=== PATIENT | female | born 1940 | race Caucasian/White ===

== ENCOUNTER 2016-08-20 20:14 | Inpatient (IN) | payer MEDICARE ==
[~2016-08-20] VITALS: Ht 157.5 cm; Wt 90.1 kg
[2016-08-20 20:18] VITALS: BP 171/64; PULSE 52; RESP 16; O2SAT 98
--- NOTE | 2016-08-20 20:20 | ED.REPORT ---
HPI-General Illness Date of Service Aug 20, 2016 ED Provider: Prashant Negron MD Patient is a 75 year old female with a history of diabetes, pulmonary hypertension on 4L of baseline oxygen who presents to the ED via EMS complaining of sudden onset vomiting since this afternoon. Associated symptoms include nausea, dry heaves, chills, malaise and diarrhea. She denies chest pain or abdominal pain. The patient states that initially she was nauseated and was able to have a bowel movement but was unable to vomit. The patient reports that when she woke up from a nap she felt like she had the stomach flu. She states that she ate a little bit of watermelon and a few potato chips and was able to keep that down but than began once the medics arrived. She reports that she is feeling better after getting some IV fluids en route. Nursing Notes Stated Complaint: NAUSEA,VOMITING Chief Complaint: Female Abdominal Pain Nursing Notes Reviewed: Yes Allergies: Coded Allergies: No Known Allergies (Unverified , 08/20/16) General Time Seen by MD: 20:17 Chief Complaint Vomiting Hx Obtained From: Patient Arrived By: Walk-in Sudden in Onset?: Yes Onset Occurred: 1 - 4 hours ago Symptom Duration: Since onset Location: : Abdomen Quality: Painful Radiation: : Does not radiate Severity: Current: Moderate Similar Sx Previous: No Past Medical History Past Medical History Reports: Diabetes mellitus, Hypertension Past Surgical History Reports: Appendectomy, Hysterectomy, Tonsillectomy Smoking History Unknown if Ever Smoker Social History Other Social History: Good social support Ambulatory Status Independent Review of Systems Full Review of Systems Constitutional: Reports: Chills, Malaise Respiratory: Denies: Non-productive cough, Shortness of breath GI: Reports: Nausea, Vomiting Skin: Denies Itching, Denies Rash Complete sys rev & neg: except as marked. Physical Exam Vital Signs Vital Signs Date Time Temp Pulse Resp B/P Pulse Ox O2 Delivery O2 Flow Rate FiO2 08/20/16 20:18 36.4 52 16 171/64 98 Nasal Cannula Initial VS: Reviewed General/Constitutional: Awake, Alert Head / Eyes: Atraumatic, Normocephalic, PERRL, EOMI Respiratory / Chest: Atraumatic, Breath sounds NL, Breath sounds = bilat, No respiratory distress Cardiovascular: Heart rate NL, Regular rhythm grade 1-2 mild systolic murmur heard best at the left lower sternal border Abdomen: Atraumatic, Soft, Non-tender, No guarding, No rebound, BS normoactive tolerates firm palpation in all quadrants. Lower Extremity / Pelvis / MS: Atraumatic, Full range of motion trace pitting edema bilateral lower extremities Skin: Atraumatic, Color NL, No rash, Warm, Dry Neurologic: Oriented X3, Speech NL, No motor deficits, No sensory deficits Psychiatric: Affect NL, Mood NL Interpretation & Diagnostics Lab Results Interpretation Result Diagram: 08/20/16205708/20/162057 Test 08/20/16 20:58 White Blood Count 8.4th/mm3 (3.8-10.1) Red Blood Count 4.66mil/mm3 (3.90-5.20) Hemoglobin 14.5g/dL (12.0-15.6) Hematocrit 44.5% (35.0-46.0) Mean Corpuscular Volume 95.5fL (81-100) Mean Corpuscular Hemoglobin 31.1pg (27.0-35.0) Mean Corpuscular Hemoglobin Concent 32.6% (32.0-37.0) Red Cell Distribution Width 14.6% (12.3-15.4) Platelet Count 246bil/L (150-400) Neutrophils (%) (Auto) 91.5% (40-74) Lymphocytes (%) (Auto) 5.6% (14-46) Monocytes (%) (Auto) 2.4% (4-12) Eosinophils (%) (Auto) 0.2% (0-5) Basophils (%) (Auto) 0.2% (0-3) Sodium Level 140mEq/L (134-144) Potassium Level 6.2mEq/L (3.5-5.2) Chloride Level 107mEq/L (97-108) Carbon Dioxide Level 18mmol/L (18-29) Blood Urea Nitrogen 62mg/dL (8-27) Creatinine 1.37mg/dL (0.57-1.00) Estimat Glomerular Filtration Rate 54mL/min (>59) Glucose Level 182mg/dL (60-99) Calcium Level 9.5mg/dL (8.5-10.1) Magnesium Level 1.9mg/dL (1.6-2.6) Total Bilirubin 0.7mg/dL (0.0-1.2) Aspartate Amino Transf (AST/SGOT) 51U/L (0-50) Alanine Aminotransferase (ALT/SGPT) 60U/L (0-32) Alkaline Phosphatase 93U/L (25-165) Total Protein 7.1g/dL (6.4-8.4) Albumin 4.1g/dL (3.4-5.0) Lipase 39U/L (13-60) Hold Aguirre Top Tube Received (Received) ECG Interpretation ECG Interpretation: RBBB no ST segment elevation inferior Q waves present no prior EKG for comparison Time: 22:34 Interpreted by: ED physician Normal ECG Interpretation: Normal rate (56), Normal sinus rhythm Re-Eval/Medical Decision Med Decision/Clinical Course Patient is a 75 year old female with a history of diabetes, pulmonary hypertension on 4L of baseline oxygen who presents to the ED via EMS complaining of sudden onset vomiting since this afternoon. Associated symptoms include nausea, dry heaves, chills, malaise and diarrhea. She denies chest pain or abdominal pain. The patient states that initially she was nauseated and was able to have a bowel movement but was unable to vomit. The patient reports that when she woke up from a nap she felt like she had the stomach flu. She states that she ate a little bit of watermelon and a few potato chips and was able to keep that down but than began once the medics arrived. She reports that she is feeling better after getting some IV fluids en route. Here in the emergency department the patient has good oxygen saturation on her baseline 4 L by nasal cannula. EKG was obtained and interpreted by myself as documented above. She is hemodynamically stable and afebrile. Labs as below: CBC unremarkable CMP: hyperkalemia with a potassium of 6.2/BUN 62/Creatinine 1.37/ mildly elevated transaminases Patient was treated with the below medications: insulin/glucose, calcium gluconate and Kayexalate Serial abdominal exams remained benign. I do not feel that abdominal imaging is indicated at this time. The patient has acute kidney injury with significant elevation of her BUN as well as potassium. She was aggressively treated with the above medications. She was additionally given IV fluids. I suspect that much for kidney injury may be related to volume depletion however she will be admitted for serial renal function measurements and treatment of her hyperkalemia. She was discussed with the admitting hospitalist and transferred to [facility] in stable condition. Time of Eval: 22:44 Re-Evaluation/Progress Note: Discussed plan for admit. Patient understands and agrees to plan. All questions were addressed. Consultation : Referral / Consult Name: Pamela Campbell DO Consulted With: Hospitalist Call Returned at: 22:28 Dumpster Operator: Agrees with eval, Agrees with plan, Accepts admit Counseled Regarding: Diagnosis, Lab results, Need for admission Discharge & Departure Primary Impression: Hyperkalemia Additional Impressions: Acute renal failure Acute renal failure type: unspecified Qualified Code: N17.9 - Acute kidney failure, unspecified Nausea and vomiting Vomiting type: unspecified Vomiting Intractability: unspecified Qualified Code: R11.2 - Nausea with vomiting, unspecified Dehydration Disposition: ADMITTED TO HOSPITAL Discharge Condition All VS Reviewed: Yes Condition: Stable Crit Care Except Billable Proc Time Spent: 105-134 minutes Services Performed: Patient management by me, Time spent at bedside, Reviewing test results, Reviewing imaging, Discussing patient care, Documentation in record, Time with fam/surrogate Scribe Attestation Portions of this note were transcribed by Olga Argueta. I, Dr. Negron personally performed the history, physical exam and medical decision-making; I reviewed and confirmed the accuracy of the information in the transcribed note. Signed by: Arely Hua, 08/20/16 and 2236 Prashant Negron MD Aug 20, 2016 20:20 Denia Argueta Aug 20, 2016 21:01
[2016-08-20 21:10] LABS: BASOPHILS % (AUTO) 0.2 % (0-3); EOSINOPHILS % (AUTO) 0.2 % (0-5); MONOCYTES % (AUTO) 2.4 % (4-12); Mean Corpuscular Hemoglobin 31.1 pg (27.0-35.0); Mean Corpuscular Volume 95.5 fL (81-100); NEUTROPHILS % (AUTO) 91.5 % (40-74); Platelet Count 246 bil/L (150-400)
[2016-08-20 21:32] LABS: Magnesium 1.9 mg/dL (1.6-2.6)
[2016-08-20] MEDS ORDERED: Sodium Polystyrene Sulfonate 0.25 Gm/mL 500 mL Suspension PO ONE (22:15)
[2016-08-20] MEDS ORDERED: Alum-Mag Hydrox-Simeth 30 mL Suspension PO PRN ×2 (22:15→23:45)
[2016-08-20] MEDS ORDERED: Insulin Human REGular-Omnicell 100 Unit/mL IV ONE (22:15)
[2016-08-20] MEDS ORDERED: Calcium GLUCOnate 10% (Gm) 1 Gm/10 mL Inj IVPUSH PRN (22:15)
[2016-08-20] MEDS ORDERED: Ondansetron 2 mg/mL 2 mL Inj IVPUSH PRN ×2 (22:15→23:45)
[2016-08-20] MEDS ORDERED: 0.9% Sodium Chloride 1,000 ML IV ONE (22:35)
[2016-08-20] MEDS ORDERED: Polyethylene Glycol (PEG) 17 Gm Powder PO PRN (23:45)
[2016-08-21] VITALS (11 sets, daily range): BP systolic 127–190; BP diastolic 36–71; PULSE 51–65; RESP 16–24; O2SAT 93–99
[2016-08-21 00:11] LABS: COLOR,URINE YELLOW (YELLOW)
[2016-08-21 00:12] LABS: APPEARANCE,URINE CLEAR (CLEAR,HAZY); OCCULT BLOOD,URINE NEGATIVE (NEGATIVE); UROBILINOGEN,URINE NORMAL (NORMAL)
[2016-08-21] MEDS: 0.9% Sodium Chloride 1,000 ML IV SCH ×3 (00:24→10:17)
[2016-08-21] MEDS: Heparin 5,000 Unit/mL Inj SUBQ SCH ×3 (00:24→16:47)
[2016-08-21] MEDS ORDERED: CLOP75TA28 PO (01:16)
[2016-08-21] MEDS ORDERED: [UNRECOGNIZED DRUG - CODE] PO (01:16)
[2016-08-21] MEDS ORDERED: CALC-140 PO (01:16)
[2016-08-21] MEDS ORDERED: GUAI-274 PO (01:16)
[2016-08-21] MEDS ORDERED: AMLO10TA3 PO (01:16)
[2016-08-21] MEDS ORDERED: SPIR25TA3 PO (01:16)
[2016-08-21] MEDS ORDERED: LOSA50TA37 PO (01:16)
[2016-08-21] MEDS ORDERED: SILD20TA14 PO (01:16)
[2016-08-21] MEDS ORDERED: ASCO-294 PO (01:16)
[2016-08-21] MEDS ORDERED: CETI10CA PO (01:16)
[2016-08-21] MEDS ORDERED: ATOR40TA69 PO (01:16)
[2016-08-21] MEDS ORDERED: CITA20TA11 PO (01:16)
[2016-08-21] MEDS ORDERED: DOCO1CAP3 PO (01:16)
[2016-08-21] MEDS ORDERED: INSU100V7 SUBQ (01:16)
--- NOTE | 2016-08-21 01:34 | PCM.HPMED ---
Subjective Date of Service Aug 21, 2016 Primary Provider: Admitting Physician: Pamela Campbell DO Primary Care Physician: Bran Morris MD Attending Physician: Pamela Campbell DO Admit Status: From the Emergency Department Chief Complaint: Nausea, vomiting, dizziness, chills. History of Present Illness: Patient is a 75 year old female with a history of diabetes, CKD, lacunar stroke , pulmonary hypertension on 4L of baseline oxygen who presents to the ED via EMS complaining of sudden onset vomiting since this afternoon. She states she was previously in her usual state of health, but then woke up from a nap today and felt disoriented and had chills. She began to have diarrhea, as well as chills, malaise, and dizziness. She called EMS, and began vomiting when they arrived. She denies chest pain or abdominal pain. She states that she ate a little bit of watermelon and a few potato chips prior that day, but had not eaten anything unusual otherwise. She denies sick contacts. On admission, BP was 190/71, HR 58. WBC 8.4 with 91% neutrophils, Hb 14.5, Hct 44.5. Na 140, K 6.2, BUN 62, Cr 1.37, glucose 182, AST 51, ALT 60. Daughter provided previous labs from 05/20/16 which showed K of 4.7 and Cr of 1.69, which she states is baseline. Review of Systems: Comprehensive review of systems conducted and was negative except for the pertinent positives listed above. Allergies Coded Allergies: No Known Allergies (Unverified , 08/20/16) Home Medications Amlodipine 10 mg daily Vit C Atorvastatin 40 mg daily Bosentan 125 mg BID Cetirizine 10 mg hs Citalopram 20 mg daily Clopidogrel 75 mg daily Lantus 1 U BIDLosartan 50 mg daily Sildenafil 20 mg TID Spironolactone 25 mg daily PMH Diabetes mellitus Hypertension Lacunar stroke CKD Pulmonary hypertension Social History Hx Alcohol Use: No Hx Substance Use: No Smoking Status: Unknown if Ever Smoker Exam Vital Signs Vital Sign - Last Date Time Temp Pulse Resp B/P Pulse Ox O2 Delivery O2 Flow Rate FiO2 08/21/16 00:21 37.1 58 24 190/71 Nasal Cannula 4.00 96 08/20/16 23:40 98 Exam General: Alert, Oriented X3, Cooperative, No acute distress Head: Normocephalic, atraumatic. External ears normal. Eyes: PERRLA, EOMI. Anicteric sclerae. Mouth: Mouth normal, Mucous membranes moist/pink Neck: Neck supple with full range of motion. Chest& Lungs: Clear to auscultation bilaterally with no crackles, wheezes, or rhonchi. Cardiovascular: Regular rate/rhythm, Normal S1, Normal S2, Holosystolic murmur present. Abdomen: Non-tender, Non-distended, No masses, Normoactive bowel tones, Soft Musculoskeletal: Normal range of motion Extremities: No cyanosis/clubbing/edema bilaterally. Callouses on bilateral feet. Neurological: Grossly neurologically intact. Normal speech Lab and Diagnostics Result Diagram: 08/20/16205708/20/162057 Assessment & Plan Patient is a 75 year old female with a history of diabetes, CKD, lacunar stroke , pulmonary hypertension on 4L of baseline oxygen who presents to the ED via EMS complaining of sudden onset vomiting since this afternoon. Acute onset vomiting and diarrhea - Possibly secondary to viral gastroenteritis. Her symptoms appear to be resolving spontaneously and pt reports she feels better with fluids. Conservative management - Continue NS @ 120 ml/hr - Promethazine 12.5 q4 PRN nausea. Avoiding Zofran due to higher risk of QT prolongation (pt QTc 495). Hyperkalemia, acute. - Likely multifactorial from dehydration, vomiting, and spironolactone and losartan. - Hold spironolactone and losartan - Calcium gluconate 1g given - Kayexalate 30g PO given - Regular insulin 10 U with glucose - Recheck K regularly Hypertension, acute on chronic. - BP 190/71 on admission. She reports her BP is usually well-controlled. Pt appears to be mildly bradycardic, and Cr is stable according to previous labs, so will proceed with enalaprilat. - Enalaprilat 0.625 mg IV once. No further doses d/t hyperkalemia, discuss use of alternate medications such as hydralazine with nephro for PRN, increase current PO medications or consideration to restarting home medications at reduced dose given elevated K - Continue amlodipine - Monitor BP closely - Will recheck Cr in AM. Elevated LFTs - AST 51, ALT 60 on admission. Pt denies abdominal pain. - Abd US ordered in AM Chronic kidney disease. - Pt presents with Cr 1.37 after vomiting and diarrhea. Per recent labs, Cr was previously 1.69 on 05/20/16, but unknown context. Pt reports history of CKD. While this appears to be stable, she may have an element of JANICE based on her clinical presentation. Uncertain what her baseline Cr is. Will treat as CKD for now but avoid unnecessary nephrotoxic agents. - Continue NS @ 120 ml/hr - Avoid nephrotoxic agents if possible - Monitor CMP Diabetes mellitus - BG 182 on admission. - Lantus 25 U daily - A1c ordered Pulmonary hypertension - Pt on 4L O2 at home - Continue supplemental O2 - Continue home bosentan, sildenafil Hx of lacunar stroke - Continue clopidogrel Depression - Pt has prolonged QT, so will hold citalopram while giving promethazine. - Bowel regimen as needed - Antiemetic as needed Patient is admitted under inpatient status with expected length of stay greater than 2 midnights due to severity of presenting symptoms, risk of adverse event, and complexity of treatment plan. Pain Evaluation: Adequate Pain Control GI Prophylaxis: Not indicated VTE Prophylaxis: Sub-Q Heparin (Unfractionated) Resuscitation Status: CPR: Attempt Resuscitation Attending Statement The patient was seen and examined together with house staff on 08/20/2016 and I agree with the history, exam and plan as outlined in the note above. Alok Mast Aug 21, 2016 01:34 Pamela Campbell DO Aug 21, 2016 03:30
[2016-08-21] MEDS ORDERED: Promethazine Inj 12.5 MG in 0.9% Sodium Chloride 50 ML IV PRN (02:05)
[2016-08-21] MEDS ORDERED: Dextrose 10% 250 ML IV PRN ×2 (02:10→13:25)
[2016-08-21] MEDS ORDERED: Glucose 40% Oral Gel 15 Gm Tube PO PRN ×2 (02:10→13:25)
[2016-08-21 02:52] LABS: BASOPHILS % (AUTO) 0.2 % (0-3); EOSINOPHILS % (AUTO) 0.1 % (0-5); MONOCYTES % (AUTO) 3.9 % (4-12); Mean Corpuscular Hemoglobin 31.4 pg (27.0-35.0); Mean Corpuscular Volume 95.2 fL (81-100); Platelet Count 260 bil/L (150-400)
--- NOTE | 2016-08-21 03:20 | NUR ---
NEW ADMIT Pt admitted to [facility] from ED @ 0000 08/21/16. Pt on 4L NC, baseline @ home. Pt was Hypertensive in 190's. One time dose of Enalaprit was given to decrease BP. BP 150's after dose, dipped to 130's later in the evening. HR was 50's-60's, baseline per pt. K+ 6.2 on admit, 5.5 on last draw. Pt SBA due to weak knees (per family). Denies pain, VSS, A&Ox3, no other issues noted at this time.
[2016-08-21] MEDS: Insulin GLARgine 100 Unit/mL Syringe SUBQ SCH ×2 (08:52→21:08)
--- NOTE | 2016-08-21 09:56 | PCM.PNMED ---
Subjective Date of Service Aug 21, 2016 Subjective Overnight there were no acute events. The patient is feeling much better this morning - she is less nauseated and had only 1 episode of diarrhea. She denies any fevers, chills, vomiting, chest pain , or SOB. Exam Vital Signs Vital Sign - Last Date Time Temp Pulse Resp B/P Pulse Ox O2 Delivery O2 Flow Rate FiO2 08/21/16 08:36 36.9 51 16 141/57 93 Nasal Cannula 4.00 08/21/16 03:14 93 Intake and Output 08/20/16 08/20/16 08/21/16 Cumulative From/Thru 15:00 23:00 07:00 08/20/16 20:18 - 08/21/16 06:00 Intake Total 1300 ml 1300 ml Output Total 250 ml 250 ml Balance 1050 ml 1050 ml Intake Oral 750 ml 750 ml IV Total 550 ml 550 ml Output Urine Total 250 ml 250 ml # Voids 3 3 # Bowel Movements 5 5 Exam General: Elderly woman on oxygen sitting upright in bed in, pleasant and cooperative, No acute distress HEENT: NCAT. PERRLA, EOMI. Membranes pink and moist without cobblestoning Neck: Neck supple with full range of motion, no JVD or thyromegaly CV: RRR, normal S1/S2 with 3/6 holosystolic murmur, no rubs/clicks Pulm: CTA bilaterally, no wheezes/rales/rhonchi Abd: obese, soft, nontender, nondistended. Bowel sounds normal, no organomegaly Extremities: Mild edema around the ankles bilaterally, no cyanosis/clubbing Neuro: A&Ox3. CN 2-12 intact. Muscle strength normal in all extremities. Psych: Normal mood and affect. IVs and Medications Medications Reviewed: Medications were reviewed in detail Lab and Diagnostics Result Diagram: 08/21/165 08/21/16 0445 Assessment & Plan Patient is a 75 year old female with a history of diabetes, CKD, lacunar stroke , pulmonary hypertension on 4L of baseline oxygen who presents to the ED via EMS complaining of sudden onset vomiting since this afternoon. Acute onset vomiting and diarrhea, improving - Possibly secondary to viral gastroenteritis. Her symptoms appear to be resolving spontaneously and pt reports she feels better with fluids. Conservative management - Stopped NS as patient is able to hold down PO - Promethazine 12.5 q4 PRN nausea. Avoiding Zofran due to higher risk of QT prolongation (pt QTc 495). Hyperkalemia, resolved - Likely multifactorial from dehydration, vomiting, and spironolactone and losartan - Continue holding spironolactone and losartan - Received Kayexalate 30g, 10 units regular insulin, 1g calcium gluconate on admission to floor - Recheck CMP this afternoon (08/21) to assess Hypertension, acute on chronic, improving - BP ranging 120-140's today - Holding losartan, spironolactone due to hyperkalemia - Continue amlodipine - Creatinine trend with CMP this afternoon (08/21) Elevated LFTs - AST 51, ALT 60 on admission. Pt denies abdominal pain. - Abd US results pending Chronic kidney disease, present on admission, improving - Pt reports history of CKD with unknown baseline creatinine - Creatinine 1.43 but will recheck with CMP this afternoon (08/21), likely dehydration secondary to vomiting/diarrhea -NS stopped due to increasing PO intake - Avoid nephrotoxic agents if possible Diabetes mellitus - BG 128 on 08/21, but patient did not eat overnight - Lantus 25 U daily - Medium nutritional scale now that PO intake is tolerated - A1c pending Pulmonary hypertension - Pt on 4L O2 at home - Continue supplemental O2 - Continue home bosentan, sildenafil Hx of lacunar stroke - Continue clopidogrel Depression - Pt has prolonged QT, so will hold citalopram while giving promethazine. - Bowel regimen as needed - Antiemetic as needed Disposition: Patient will likely discharge home tomorrow depending on her response to PO intake and continued stability of her electrolytes, with close follow up as an outpatient of her medication regimen. GI Prophylaxis: Not indicated VTE Prophylaxis: Sub-Q Heparin (Unfractionated) Resuscitation Status: CPR: Attempt Resuscitation Time spent 25 minutes Attending Statement I have seen and evaluated the patient at bedside in addition to directly supervising care provided by resident physician, Dr Church. I agree with above documentation. Vasu Church DO Aug 21, 2016 09:56 Jostin Madison DO Aug 22, 2016 12:23 Vasu Church DO Aug 21, 2016 09:56
--- NOTE | 2016-08-21 17:32 | NUR ---
O2 Patient on 4-6L O2 via NC. She uses 4 L NC at home baseline. Patient SOB at rest, dypnea increases with activity. Will continue to monitor.
[2016-08-21] MEDS: Insulin LISPRO 300 Unit/3 mL Inj SUBQ SCH ×2 (18:18→22:00)
--- NOTE | 2016-08-21 19:12 | NUR ---
Code Status Noticed MD notes conflicted with code status entered in [employer]. Asked patient if her heart stopped if she would like us to do CPR. She replied" Well for a little while, whatever you considered a reasonable amount of time." Notified night RN to follow up with MD. kick boxer also notified.
[2016-08-22] VITALS (8 sets, daily range): BP systolic 151–176; BP diastolic 59–67; PULSE 49–76; RESP 16–20; O2SAT 92–96
[2016-08-22] MEDS: Heparin 5,000 Unit/mL Inj SUBQ SCH ×4 (00:44→23:59)
[2016-08-22 02:47] LABS: BASOPHILS % (AUTO) 0.4 % (0-3); EOSINOPHILS % (AUTO) 1.7 % (0-5); MONOCYTES % (AUTO) 6.7 % (4-12); Mean Corpuscular Volume 96.6 fL (81-100); NEUTROPHILS % (AUTO) 78.5 % (40-74); Platelet Count 254 bil/L (150-400)
--- NOTE | 2016-08-22 04:20 | NUR ---
Code Status/BP/HR conflicting Code status orders, clarifies w Pt , stated she wanted reasonable efforts to save her life if her heart stopped. Dr was notified to make the written order reflect her wishes . Had elevated BP , resident was notified , took manual BP on rt radial, 138/54, Resident concerned about HR, will notify him if hr below 50 for more than 10 minutes, HR has varied between 44 and 72 . 6 L O2 per NC Tele , S-arnaud mid to low 50.
[2016-08-22] MEDS: Insulin LISPRO 300 Unit/3 mL Inj SUBQ SCH ×4 (08:00→21:10)
[2016-08-22] MEDS ORDERED: 0.9% Sodium Chloride 1,000 ML IV SCH (08:50)
[2016-08-22] MEDS: Insulin GLARgine 100 Unit/mL Syringe SUBQ SCH ×2 (09:02→21:10)
--- NOTE | 2016-08-22 11:56 | NUR ---
Madeline Signed JOSHUA Telles
--- NOTE | 2016-08-22 12:32 | PCM.PNMED ---
Subjective Date of Service Aug 22, 2016 Subjective Patient notes no acute changes overnight, still not feeling back to herself. States she is still little bit nauseated appetite is not improved, no nausea is essentially resolved she is able to keep some food and fluids down. Denies any fever or chills. No recurrent vomiting. Abdominal pain essentially resolved though very occasionally she will have discomfort in the left lower quadrant. Exam Vital Signs Vital Sign - Last Date Time Temp Pulse Resp B/P Pulse Ox O2 Delivery O2 Flow Rate FiO2 08/22/16 08:33 64 08/22/16 08:12 37.1 20 152/67 94 Nasal Cannula 6.00 08/21/16 03:14 93 Intake and Output 08/21/16 08/21/16 08/22/16 Cumulative From/Thru 15:00 23:00 07:00 08/20/16 20:18 - 08/22/16 06:35 Intake Total 2020 ml 550 ml 3870 ml Output Total 900 ml 500 ml 1650 ml Balance 1120 ml 50 ml 2220 ml Intake Oral 550 ml 1300 ml IV Total 2020 ml 2570 ml Output Urine Total 900 ml 500 ml 1650 ml # Voids 3 # Bowel Movements 2 7 General: Alert, Oriented X3, Cooperative, Mild Distress Eyes: PERRLA, EOMI Mouth: Mucous Membranes Dry Chest & Lungs: Clear to auscultation & percussion Cardiovascular: Regular Rate/Rhythm, No Murmurs/Rubs/Gallops Abdomen: Non-distended, Normoactive bowel tones, Other (no guarding, only mild tenderness noted in the left lower quadrant. ) Extremities: Other (patient demonstrates lower extremity edema extending up to midcalf bilaterally, more pronounced on right side. Approximately +1 severity. Dorsal pedis pulses palpable intact. ) Neurological: Grossly Neurologically Intact IVs and Medications Medications Reviewed: Medications were reviewed in detail Lab and Diagnostics Result Diagram: 08/22/1621908/22/16219 Assessment & Plan Patient is a 75 year old female with a history of diabetes, CKD, lacunar stroke , pulmonary hypertension on 4L of baseline oxygen who presents to the ED via EMS complaining of sudden onset vomiting since this afternoon. Acute onset vomiting and diarrhea, improving - Possibly secondary to viral gastroenteritis. Her symptoms appear to be resolving spontaneously and pt reports she feels better with fluids. Conservative management - Given progressive elevation of liver functions, we will pursue further evaluation for alternative causes of abdominal pain with nausea ultrasound study which is ordered and pending. - Normal saline started yesterday, though perhaps prematurely given opportunity potassium in addition to elevation in creatinine level. Will restart fluids at a lower rate at this time, to help augment patient's oral hydration - Continue Promethazine 12.5 q4 PRN nausea. Avoiding Zofran due to higher risk of QT prolongation (pt QTc 495). Hyperkalemia, resolved - Likely multifactorial from dehydration, vomiting, and spironolactone and losartan - Initially downward trending though it has been rising since yesterday. - Continue holding spironolactone and losartan - Received Kayexalate 30g, 10 units regular insulin, 1g calcium gluconate on admission to floor - Continue telemetry monitoring. Lower extremity edema - May be related to volume status given intravenous hydration - However given worsening renal function and electrolyte levels noted above, we will continue with cautious hydration this time. - Recommend elevation of lower extremities and possible - We will continue to monitor. - No other evidence of volume overload/CHF at this time, patient denied chest pains having stable oxygen requirements. Hypertension, acute on chronic, improving - BP ranging 120-140's today - Holding losartan, spironolactone due to hyperkalemia - Continue amlodipine - Creatinine trend with CMP in AM Elevated LFTs -Continue to be upper trending - Abd US results pending as noted above. Chronic kidney disease, present on admission, improving - Pt reports history of CKD with unknown baseline creatinine - Creatinine 1.43 on admission , likely in part at least to dehydration secondary to vomiting/diarrhea -Now restarted fluids given impart to elevated renal functions, though there is impairment at baseline. - Continue to avoid nephrotoxic agents if possible Diabetes mellitus - BG 128 on 08/21, but patient did not eat overnight - Lantus 25 U daily - Medium nutritional scale now that PO intake is tolerated - A1c pending Pulmonary hypertension - Pt on 4L O2 at home - Continue supplemental O2 - Continue home bosentan, sildenafil Hx of lacunar stroke - Continue clopidogrel Depression - Pt has prolonged QT, so will hold citalopram while giving promethazine. Disposition: Patient will likely discharge home in 1-2 days with continued improvement in by mouth intake in addition to stabilization of potassium levels Pain Evaluation: Adequate Pain Control GI Prophylaxis: Not indicated VTE Prophylaxis: Sub-Q Heparin (Unfractionated) Resuscitation Status: CPR: Attempt Resuscitation Time spent 30 minutes Jostin Madison DO Aug 22, 2016 12:32
--- NOTE | 2016-08-22 13:32 | NUR ---
Legs Right leg swollen and tight, no redness or warmth noted. Left leg swollen, smaller than right. Placed legs on chair. Pt resting. Care continues.
--- NOTE | 2016-08-22 15:12 | NUR ---
Social Work Note: Initial Assessment Data& Assessment: EMR reviewed. SW met with pt and pt daughter at bedside to confirm discharge plan and assess for any unmet needs, SW role explained. Sherley kamara is a 75 year old female admitted on 08/20/2016 for hyperkalemia. Pt has [employer] Medicare Complete HMO. Pt sees Bran Morris MD for primary care. Pt lives in [place] alone in a one story home with two steps to enter the home. Pt requires 4L of oxygen at baseline through [facility] but otherwise does not use any DME. Pt daughter expressed interest in a 4WW, SW to discuss with MD. DME list provided as a reference in case they decide to purchase a walker privately. Pt does not have HH or SNF hx. Pt does not have LTC insurance or VA benefits. Per pt and pt daughter request, SW discussed LTC planning, and provided [facility] informational pack per pt daughter request. Pt has DPOA/AD paperwork completed. SW requested a copy when possible. Pt daughter to transport pt home when medically ready. Pt and pt daughter denies any other needs at this time. SW to continue to follow for MD orders. Plan: Anticipated discharge home via POV when medically ready. SW to follow up with MD about medical necessity for a 4WW. SW to await for further MD orders. Pt and pt daughter denies any other needs at this time. SW to continue to follow. JOSHUA Telles Addendum: 08/22/16 at 1518 by MICHELLE QUINONES Amended: Links added.
--- NOTE | 2016-08-22 18:00 | DRSVH ---
PROCEDURE: US ABDOMEN ([id number]) INDICATIONS: elevated LFTs, vomiting, diarrhea TECHNIQUE: Real-time scanning was performed of the abdominal and retroperitoneal organs, with image documentatio n. COMPARISON: None. FINDINGS: Liver: Liver is normal in size and homogeneous in echotexture, diffusely hyperechoic consistent with fatty infiltration. Gallbladder: The gallbladder appears normal except for presence of several small polyps within the m ucosal margin of the gallbladder itself. Biliary ducts: No definite intrahepatic or extrahepatic biliary distention seen. Pancreas: Not well-seen due to bowel gas Spleen: Spleen is normal in size and homogeneous in echotexture. Kidneys: Kidneys are normal in size and echotexture. Right kidney measures 11.0 cm long; left kidne y measures 10.0 cm long. No hydronephrosis or nephrolithiasis. No solid masses. Aorta: Not well-seen due to bowel gas. Iliacs: Not seen due to bowel gas. IVC: Intrahepatic inferior vena cava is patent. Miscellaneous: No free abdominal fluid. IMPRESSION: Significant limitations in quality of visualization due to overlying bowel gas. CT scan yanet may be warranted depending on the clinical status. Fatty infiltration seen throughout the liver . The spleen is not enlarged, and no varices or ascites is found but as noted the study is significa ntly limited. Polyps within the gallbladder mucosal margins are incidentally noted, small in size. Dictated by: Nehemias Gilliam M.D. on 08/22/2016 at 17:56 Approved by: Nehemias Gilliam M.D. on 08/22/2016 at 17:58
[2016-08-23] VITALS (9 sets, daily range): BP systolic 140–167; BP diastolic 54–72; PULSE 43–54; RESP 14–18; O2SAT 94–97
--- NOTE | 2016-08-23 00:11 | NUR ---
BP SPECTROGRAPH OPERATOR reported BP of 176/64 at 2340, pt said she "had just got up and used the bathroom." Waited 40 minutes and took BP again, 167/65. BP coming down, will continue to monitor progress.
[2016-08-23 03:25] LABS: BASOPHILS % (AUTO) 0.4 % (0-3); EOSINOPHILS % (AUTO) 3.9 % (0-5); MONOCYTES % (AUTO) 11.5 % (4-12); Mean Corpuscular Hemoglobin 30.6 pg (27.0-35.0); Mean Corpuscular Volume 95.9 fL (81-100); NEUTROPHILS % (AUTO) 68.7 % (40-74); Platelet Count 230 bil/L (150-400)
[2016-08-23] MEDS: Insulin LISPRO 300 Unit/3 mL Inj SUBQ SCH ×4 (08:00→20:16)
[2016-08-23] MEDS: Heparin 5,000 Unit/mL Inj SUBQ SCH ×2 (09:20→17:06)
[2016-08-23] MEDS: Insulin GLARgine 100 Unit/mL Syringe SUBQ SCH ×2 (09:20→20:16)
[2016-08-23] MEDS ORDERED: Magnesium Sulf 4 Gm/100 mL H2O 4 GM in IV Premix 1 EACH IV ONE (09:20)
--- NOTE | 2016-08-23 11:06 | PCM.PNMED ---
Subjective Date of Service Aug 23, 2016 Subjective There were no acute events overnight. The patient feels better this morning, noting that she is not nauseous and has been able to hold down food and water without issue. Her abdominal discomfort has completely resolved, and she also denies fever/chills, diarrhea, SOB or chest pain. Exam Vital Signs Vital Sign - Last Date Time Temp Pulse Resp B/P Pulse Ox O2 Delivery O2 Flow Rate FiO2 08/23/16 10:40 54 08/23/16 09:12 36.3 16 162/67 97 Nasal Cannula 4.50 08/21/16 03:14 93 Intake and Output 08/22/16 08/22/16 08/23/16 Cumulative From/Thru 15:00 23:00 07:00 08/20/16 20:18 - 08/23/16 06:46 Intake Total 1660 ml 637 ml 6167 ml Output Total 950 ml 950 ml 3550 ml Balance 710 ml -313 ml 2617 ml Intake Oral 620 ml 637 ml 2557 ml IV Total 1040 ml 3610 ml Output Urine Total 950 ml 950 ml 3550 ml # Voids 3 # Bowel Movements 7 Exam General: Elderly woman on oxygen sitting upright in bed, pleasant and cooperative, No acute distress HEENT: NCAT. PERRLA, EOMI. Membranes pink and moist without cobblestoning Neck: Neck supple with full range of motion, no JVD or thyromegaly CV: RRR, normal S1/S2 with 3/6 holosystolic murmur, no rubs/clicks Pulm: CTA bilaterally, no wheezes/rales/rhonchi Abd: obese, soft, nontender, nondistended. Bowel sounds normal, no organomegaly Extremities: Mild edema around the ankles bilaterally, no cyanosis/clubbing Neuro: A&Ox3. CN 2-12 intact. Muscle strength normal in all extremities. Psych: Normal mood and affect. IVs and Medications Medications Reviewed: Medications were reviewed in detail Medications We started 12.5mg HCTZ on 08/23 due to increasing BP. Lab and Diagnostics Result Diagram: 08/23/16 0255 08/23/16 0255 X-Rays, CTs and MRIs Abd US, 08/21 IMPRESSION: Significant limitations in quality of visualization due to overlying bowel gas. CT scanning may be warranted depending on the clinical status. Fatty infiltration seen throughout the liver. The spleen is not enlarged, and no varices or ascites is found but as noted the study is significantly limited. Polyps within the gallbladder mucosal margins are incidentally noted, small in size. Dictated by: Nehemias Gilliam M.D. on 08/22/2016 at 17:56 Approved by: Nehemias Gilliam M.D. on 08/22/2016 at 17:58 Assessment & Plan Patient is a 75 year old female with a history of diabetes, CKD, lacunar stroke , pulmonary hypertension on 4L of baseline oxygen who presents to the ED via EMS complaining of sudden onset vomiting since the afternoon of 08/20/16. Acute onset vomiting and diarrhea, improved - Possibly secondary to viral gastroenteritis. Her symptoms appear to be resolving spontaneously and pt reports she feels better with fluids. - Abd ultrasound as above. LFT's have mostly normalized and patient denies any abdominal pain, nausea, or vomiting. - NS stopped 08/22 to prevent fluid overload as patient is taking in PO hydration - Creatinine still hovering around ~1.3, continue to monitor - Continue Promethazine 12.5 q4 PRN nausea. Avoiding Zofran due to higher risk of QT prolongation (pt QTc 495). Hyperkalemia, resolved - Likely multifactorial from dehydration, vomiting, and spironolactone and losartan - Received Kayexalate 30g, 10 units regular insulin, 1g calcium gluconate on admission to floor - 4.8 as of 08/23 - Continue holding spironolactone and losartan - D/C telemetry due to stability and resolution of hyperkalemia - Added HCTZ 12.5 for rising BP alongside potassium excretive properties Lower extremity edema - May be related to volume status given intravenous hydration - No unilateral swelling, redness, or tenderness - We will continue to monitor. - No other evidence of volume overload/CHF at this time, patient denied chest pains having stable oxygen requirements. Hypertension, acute on chronic, improving - BP ranging 120-140's today - Holding losartan, spironolactone due to hyperkalemia - Continue amlodipine - Added 12.5 HCTZ on 08/23 - Creatinine trend, still hovering ~1.3 Elevated LFTs, resolved -Fell to normal on 08/23 - Pt denies any abd pain, nausea, vomiting - Abd US results as above Chronic kidney disease, present on admission, improving - Pt reports history of CKD with unknown baseline creatinine - Creatinine 1.43 on admission , likely in part at least to dehydration secondary to vomiting/diarrhea - Continue to avoid nephrotoxic agents if possible - Continue to monitor Diabetes mellitus - BG continue to be in acceptable range - Lantus 25 U daily - Medium nutritional scale now that PO intake is tolerated - A1c 6.9 Pulmonary hypertension - Pt on 4L O2 at home - Continue supplemental O2 - Continue home bosentan, sildenafil Hx of lacunar stroke - Continue clopidogrel Depression - Pt has prolonged QT, so will hold citalopram while giving promethazine. Disposition: Patient will likely discharge home tomorrow dependent on continued improvement in by mouth intake in addition to improving creatinine and blood pressures. Pain Evaluation: Adequate Pain Control GI Prophylaxis: Not indicated VTE Prophylaxis: Sub-Q Heparin (Unfractionated) Resuscitation Status: CPR: Attempt Resuscitation Attending Statement The patient was seen and examined together with Dr. Church on 08/23/2016 and I agree with the history, exam and plan as outlined in the note above. . Vasu Church DO Aug 23, 2016 11:06 Adonis Beebe MD Aug 23, 2016 16:30
--- NOTE | 2016-08-23 13:13 | NUR ---
Evaluation completed. Please go to "Notes" then click on "Assessments and Notes" (bottom left corner of screen). Then select appropriate discipline tab on top of screen.
--- NOTE | 2016-08-23 15:13 | NUR ---
Physical Therapy 0930 - Discussed her care with Dr. Beebe, Dr. Perez, and the rest of the multidisciplinary care team during morning rounds. Physical Therapy - She worked with PT today and tolerated the activity well. She was able to walk half way down the hallway with stand by assist before turning around and walking back to her room. She was happy with her progress. Care continues.
[2016-08-24 00:07] VITALS: BP 154/62; PULSE 55; RESP 20; O2SAT 93
[2016-08-24 03:22] LABS: BASOPHILS % (AUTO) 0.4 % (0-3); EOSINOPHILS % (AUTO) 4.6 % (0-5); MONOCYTES % (AUTO) 9.8 % (4-12); Mean Corpuscular Hemoglobin 30.4 pg (27.0-35.0); Mean Corpuscular Volume 94.6 fL (81-100); NEUTROPHILS % (AUTO) 70.1 % (40-74); Platelet Count 236 bil/L (150-400)
[2016-08-24 03:35] VITALS: BP 157/65; PULSE 55; RESP 20; O2SAT 97
--- NOTE | 2016-08-24 05:27 | NUR ---
Respiratory Pt initially on 4.5L NC at beginning of shift with SpO2 approx. 96%; pt weaned to her baseline of 4L O2. At HS, transitioned to pt's own BiPAP with 2L bleed. No c/o dyspnea this shift. VSS, some hypertension with SBP in 160s; pt naturally decreased to SBP of 150s throughout shift. No telemetry. Pt denies any pain throughout shift. Able to rest between interventions, pt reports "I'm sleeping really well tonight."
[2016-08-24] MEDS: Insulin LISPRO 300 Unit/3 mL Inj SUBQ SCH ×2 (07:41→11:47)
--- NOTE | 2016-08-24 08:00 | PCM.DIMED ---
Vasu Church DO 08/24/16 0800: Discharge Instructions Date of Service Aug 24, 2016 Dates of Hospitalization Aug 20, 2016 at 23:23 Discharge Diagnosis Discharge Diagnosis Acute onset vomiting and diarrhea Hyperkalemia Lower extremity edema Hypertension, acute on chronic, improving Elevated LFTs, resolved Chronic kidney disease, present on admission, improving Diabetes mellitus Pulmonary hypertension Hx of lacunar stroke Depression Medication Instructions Additional med instructions Do not take your Losartan or your Spironolactone until your appointment with Dr. Morris on 08/27. Start taking the hydrochlorothiazide (HCTZ) 12.5mg daily to control your blood pressure. Diet Discharge Diet: Diabetic, Renal Diet Activity Discharge Activity: Other (PT recommends a 4 wheel walker when ambulating) Call your provider Call your provider for: Fever or Chills, Shortness of breath, Vomitting, Excessive diarrhea Patient Instructions Patient Instructions Stop taking your Losartan and Spironolactone at home. Continue taking the new medication, hydrochlorothiazide (HCTZ) 12.5mg daily to control your blood pressure. Follow up with Dr. Morris at your appointment on 08/27 to evaluate your electrolytes and blood pressure medication regimen. I've given you a prescription for a 4 wheel walker, as we discussed. PT recommends using it during ambulation so you can rest when you become short of breath, and can carry your oxygen with you. Follow-up Provider: Bran Morris MD Follow-up with PCP in: 1 week (she has appointment on 08/27) Adonis Beebe MD 08/24/169: Discharge Instructions Attending's Statement The patient was seen and examined together with Dr. Church on 08/24/2016 and I agree with the history, exam and plan as outlined in the note above. . Vasu Church DO Aug 24, 2016 08:00 Adonis Beebe MD Aug 24, 2016 20:39
--- NOTE | 2016-08-24 08:08 | PCM.DC.MED ---
Discharge Summary Date of Service Aug 24, 2016 Dates of Hospitalization Date of Hospital Admission Aug 20, 2016 at 23:23 Date of Discharge: Aug 24, 2016 Providers: Admitting Physician: Adonis Beebe MD Primary Care Physician: Bran Morris MD Attending Physician: Adonis Beebe MD Diagnosis at Time of Discharge Diagnosis at Time of Discharge Acute onset vomiting and diarrhea Hyperkalemia Lower extremity edema Hypertension Elevated LFTs, resolved Chronic kidney disease Diabetes mellitus Pulmonary hypertension Hx of lacunar stroke Depression Procedures XRay, CTs & MRIs Abd US, 08/21 IMPRESSION: Significant limitations in quality of visualization due to overlying bowel gas. CT scanning may be warranted depending on the clinical status. Fatty infiltration seen throughout the liver. The spleen is not enlarged, and no varices or ascites is found but as noted the study is significantly limited. Polyps within the gallbladder mucosal margins are incidentally noted, small in size. Dictated by: Nehemias Gilliam M.D. on 08/22/2016 at 17:56 Approved by: Nehemias Gilliam M.D. on 08/22/2016 at 17:58 Brief History Patient is a 75 year old female with a history of diabetes, CKD, lacunar stroke , pulmonary hypertension on 4L of baseline oxygen who presents to the ED via EMS complaining of sudden onset vomiting since this afternoon. She states she was previously in her usual state of health, but then woke up from a nap today and felt disoriented and had chills. She began to have diarrhea, as well as chills, malaise, and dizziness. She called EMS, and began vomiting when they arrived. She denies chest pain or abdominal pain. She states that she ate a little bit of watermelon and a few potato chips prior that day, but had not eaten anything unusual otherwise. She denies sick contacts. On admission, BP was 190/71, HR 58. WBC 8.4 with 91% neutrophils, Hb 14.5, Hct 44.5. Na 140, K 6.2, BUN 62, Cr 1.37, glucose 182, AST 51, ALT 60. Her daughter provided previous labs which showed K of 4.7 and Cr of 1.69, which she states is baseline. She was treated with Kayexalate 30g, 10 units regular insulin, 1g calcium gluconate and hydrated with NS in the ED before admission to the floor. We held her Losartan and Spironolactone while admitted, her potassium fell to 4.8 and is now 4.4 on discharge. Her creatinine has stayed around 1.3-1.4, which is improved from her stated baseline of 1.69. Her LFT's did increase during her admission, but she reported no abdominal pain , nausea, or vomiting, and this is likely due to her presenting viral gastroenteritis and its sequela. An abdominal US was remarkable for polyps in her gallbladder but otherwise negative. Her LFT's returned to relatively normal limits and the patient continues to be stable and asymptomatic, so further work up was not indicated at this time. Of note, she was evaluated by PT, who recommends a 4 wheel walker when ambulating. This will give her the opportunity to take her oxygen around with her, as well as sit down and rest if she becomes short of breath. Hospital Course Patient is a 75 year old female with a history of diabetes, CKD, lacunar stroke , pulmonary hypertension on 4L of baseline oxygen who presents to the ED via EMS complaining of sudden onset vomiting since the afternoon of 08/20/16. Acute onset vomiting and diarrhea, resolved - Possibly secondary to viral gastroenteritis. Her symptoms appear to be resolving spontaneously and pt reports she feels better with fluids. - Pt reports no nausea/vomiting, has been able to keep up with PO intake - Abd ultrasound as above. LFT's have mostly normalized and patient denies any abdominal pain, nausea, or vomiting. - Creatinine still hovering around ~1.3, better than the stated 1.69 baseline Hyperkalemia, resolved - Likely multifactorial from dehydration, vomiting, and spironolactone and losartan - Received Kayexalate 30g, 10 units regular insulin, 1g calcium gluconate on admission to floor - Potassium 4.4 on discharge - Continue holding spironolactone and losartan until she follows up with her PCP on 08/27 - Continue HCTZ 12.5 for rising BP alongside potassium excretive properties until seen by PCP on 08/27 Lower extremity edema, improved - May be related to volume status given intravenous hydration - No unilateral swelling, redness, or tenderness - No other evidence of volume overload/CHF at this time, patient denied chest pains and has had stable oxygen requirements. Hypertension, acute on chronic, improving - BP ranging 130-150's throughout her hospitalization - Holding losartan, spironolactone due to hyperkalemia - Continue amlodipine - Added 12.5 HCTZ on 08/23, continue until her PCP appointment on 08/27 Elevated LFTs, resolved - Fell to normal on 08/24 - Pt denies any abd pain, nausea, vomiting - Abd US results as above Chronic kidney disease, present on admission, improved - Pt reports history of CKD with unknown baseline creatinine (1.69 per 05/07 labs ) - Creatinine 1.43 on admission has fallen to 1.36, likely in part at least to dehydration secondary to vomiting/diarrhea - Continue to avoid nephrotoxic agents as outpatient Diabetes mellitus, present on admission, chronic - A1c 6.9 - Continue home insulin regimen Pulmonary hypertension - Pt on 4L O2 at home and throughout admission - Continue supplemental O2 - Continue home bosentan, sildenafil - PT recommended 4WW when ambulating for oxygen transport and the ability to sit and rest when short of breath. Hx of lacunar stroke - Continue clopidogrel Depression - Continue home citalopram Disposition: Patient was discharged home in stable and improved condition, with resolution of her hyperkalemia and elevated transaminases and follow up with her PCP, Dr. Morris, on 08/27. She expressed understanding of the changes to her medication regimen and under what conditions she should return to the hospital. Exam Vital Signs (Last) Date Time Temp Pulse Resp B/P Pulse Ox O2 Delivery O2 Flow Rate FiO2 08/24/16 03:35 36.4 55 20 157/65 97 CPAP 2.00 08/21/16 03:14 93 Exam General: Elderly woman on oxygen sitting upright in bed, pleasant and cooperative, No acute distress HEENT: NCAT. PERRLA, EOMI. Membranes pink and moist without cobblestoning Neck: Neck supple with full range of motion, no JVD or thyromegaly CV: RRR, normal S1/S2 with 3/6 holosystolic murmur, no rubs/clicks Pulm: CTA bilaterally, no wheezes/rales/rhonchi Abd: obese, soft, nontender, nondistended. Bowel sounds normal, no organomegaly Extremities: Mild edema around the ankles bilaterally, no cyanosis/clubbing Neuro: A&Ox3. CN 2-12 intact. Muscle strength normal in all extremities. Psych: Normal mood and affect. Test 08/20/16 20:58 08/20/16 22:50 08/20/16 23:38 08/21/16 02:25 Lipase 39U/L (13-60) Hold Aguirre Top Tube Received (Received) Hold Urine Received (Received) Urine Color Yellow (YELLOW) Urine Appearance Clear (CLEAR,HAZY) Urine pH 5.0 (5.0-8.0) Urine Specific Sandoval 1.015 (1.003-1.035) Urine Protein Negativemg/dL (NEG,TRACE) Urine Glucose (UA) Negativemg/dL (NEGATIVE) Urine Ketones Negativemg/dL (NEGATIVE) Urine Occult Blood Negative (NEGATIVE) Urine Nitrite Negative (NEGATIVE) Urine Bilirubin Negative (NEGATIVE) Urine Urobilinogen Normalmg/dL (NORMAL) Urine Leukocyte Esterase Negative (NEGATIVE) Urine RBC 0-2/hpf (0-2) Urine WBC 0-5/hpf (0-5) Urine Epithelial Cells Occasional/hpf (NONE-MOD) Urine Crystals None seen (NONE SEEN) Urine Bacteria None/hpf (NONE-FEW) Urine Hyaline Casts None/lpf (NONE) Urine Granular Casts None seen (NONE SEEN) Urine Waxy Casts None seen (NONE SEEN) Urine Red Blood Cell Casts None seen (NONE SEEN) Urine White Blood Cell Casts None seen (NONE SEEN) Urine Mucus None seen (None Seen) Urine Trichomonas None seen (NONE SEEN) Urine Yeast None (NONE SEEN) Urinalysis Comment None Urine Culture Reflexed Not indicated Hemoglobin A1c 6.9% (4.8-5.6) Test 08/24/16 02:46 White Blood Count 7.4th/mm3 (3.8-10.1) Red Blood Count 4.28mil/mm3 (3.90-5.20) Hemoglobin 13.0g/dL (12.0-15.6) Hematocrit 40.5% (35.0-46.0) Mean Corpuscular Volume 94.6fL (81-100) Mean Corpuscular Hemoglobin 30.4pg (27.0-35.0) Mean Corpuscular Hemoglobin Concent 32.1% (32.0-37.0) Red Cell Distribution Width 14.4% (12.3-15.4) Platelet Count 236bil/L (150-400) Neutrophils (%) (Auto) 70.1% (40-74) Lymphocytes (%) (Auto) 15.0% (14-46) Monocytes (%) (Auto) 9.8% (4-12) Eosinophils (%) (Auto) 4.6% (0-5) Basophils (%) (Auto) 0.4% (0-3) Sodium Level 139mEq/L (134-144) Potassium Level 4.4mEq/L (3.5-5.2) Chloride Level 107mEq/L (97-108) Carbon Dioxide Level 18mmol/L (18-29) Blood Urea Nitrogen 48mg/dL (8-27) Creatinine 1.36mg/dL (0.57-1.00) Estimat Glomerular Filtration Rate 55mL/min (>59) Glucose Level 68mg/dL (60-99) Calcium Level 9.1mg/dL (8.5-10.1) Magnesium Level 2.6mg/dL (1.6-2.6) Total Bilirubin 0.7mg/dL (0.0-1.2) Aspartate Amino Transf (AST/SGOT) 31U/L (0-50) Alanine Aminotransferase (ALT/SGPT) 67U/L (0-32) Alkaline Phosphatase 85U/L (25-165) Total Protein 5.7g/dL (6.4-8.4) Albumin 3.6g/dL (3.4-5.0) Discharge Medications Discharge Medications Amlodipine (Amlodipine) 10 Mg Tablet 10 MG PO DAILY (Reported) Ascorbate Calcium (Vitamin C) 500 Mg Tablet 500 MG PO DAILY (Reported) Atorvastatin Calcium (Atorvastatin Calcium) 40 Mg Tablet 40 MG PO DAILY ( Reported) Bosentan (Tracleer) 125 Mg Tablet 125 MG PO BID (Reported) Calcium Carbonate/Vitamin D3 (Calcium + Vitamin D Tablet) 1 Each Tablet 1 EACH PO DAILY (Reported) Cetirizine HCl (Zyrtec) 10 Mg Capsule 10 MG PO HS (Reported) Citalopram (Citalopram) 20 Mg Tablet 20 MG PO DAILY (Reported) Clopidogrel (Clopidogrel) 75 Mg Tablet 75 MG PO DAILY (Reported) Docosahexanoic Acid/Epa (Fish Oil Concentrate Softgel) 1 Each Capsule 1 EACH PO BID (Reported) Guaifenesin/Phenylephrine HCl (Maxiphen Tablet) 1 Each Tablet 1 EACH PO BID ( Reported) Hydrochlorothiazide (Hydrochlorothiazide) 25 Mg Tablet 12.5 MG PO DAILY Prescribed by: JEET BENAVIDEZ DO Insulin Glargine (Lantus U100 Insulin Vial) 100 Unit/Ml Vial 1 UNIT SUBQ BID ( Reported) Sildenafil Citrate (Sildenafil) 20 Mg Tablet 20 MG PO TID (Reported) Durable Medical Equipment Walker (Ultra-Light Rollator) 1 Each Each 1 EACH (DME) Physical therapy recommended 4WW. Prescribed by: JEET BENAVIDEZ DO Additional med instructions Do not take your Losartan or your Spironolactone until your appointment with Dr. Morris on 08/27. Start taking the hydrochlorothiazide (HCTZ) 12.5mg daily to control your blood pressure. Followup Plan Discharge Diet: Diabetic, Renal Diet Discharge Activity: No restrictions Patient Instructions Stop taking your Losartan and Spironolactone at home. Continue taking the new medication, hydrochlorothiazide (HCTZ) 12.5mg daily to control your blood pressure. Follow up with Dr. Morris at your appointment on 08/27 to evaluate your electrolytes and blood pressure medication regimen. Follow-up Provider: Bran Morris MD Follow-up with PCP in: 1 week (she has appointment on 08/27) Time spent Greater than 30 minutes was spent in preparation of discharge with greater than 50% of that time dedicated to patient counseling and coordination of care. . Attending Statement The patient was seen and examined together with Dr. Church on 08/24/2016 and I agree with the history, exam and plan as outlined in the note above. . copies to: Bran Morris MD, Jeffery S DO Aug 24, 2016 08:07 Adonis Beebe MD Aug 24, 2016 20:40
[2016-08-24] MEDS ORDERED: HYDR25TA4 PO (09:24)
[2016-08-24] MEDS ORDERED: WALK1EAC55 MC (09:24)
[2016-08-24 09:38] VITALS: BP 167/72; PULSE 53; RESP 16; O2SAT 99
[2016-08-24] MEDS: Heparin 5,000 Unit/mL Inj SUBQ SCH ×2 (09:45)
[2016-08-24] MEDS: Insulin GLARgine 100 Unit/mL Syringe SUBQ SCH (09:47)
--- NOTE | 2016-08-24 11:12 | NUR ---
Faxed facesheet and script for equipment to [facility] in [place] per [employer]. updated [employer]
--- NOTE | 2016-08-24 12:50 | NUR ---
Discharge, Blood Glucose 0745 - Her blood glucose (BG) was 66. Denied symptoms of hypoglycemia saying, "I'm normally in the 70s in the morning." She refused the oral glucose, but wanted ice cream instead. She ate 100% of her breakfast (eggs and fruit). 928 - Spoke to Khalif in the Pharmacy and requested that her Viagra be sent up as it was missing. He said it would be sent up. It was sent up a few minutes later and given. 929 - Discussed her care with Dr. Beebe, Dr. Perez, and the rest of the multidisciplinary care team. Informed them that her BG was 66, she was asymptomatic, and she wanted ice cream instead of the oral glucose. Also informed them that she was back to her baseline 4L of O2 via nasal cannula. This information was acknowledged. They said she'd discharge today with an order for a walker. 1245 - She discharged at this time. IV discontinued intact. Her blood glucose was 70, she was asymptomatic, was planning to go out and eat a big lunch with her daughter, and she was given some ice cream. Discussed and gave the discharge paperwork to her and her daughter (hard copy of prescriptions, care notes, instructions). She thanked this nurse for all the wonderful care she received during her stay. Liseth, the [employer], took her to her daughter's car via a wheelchair.
--- NOTE | 2016-08-24 15:30 | NUR ---
Social Work Note: Discharge Data& Assessment: Per pt is medically ready to discharge home via POV. Sherley Canales is a 75 year old female admitted on 08/20/2016 for hyperkalemia and ARF. Per pt is medically ready to discharge home via POV. SW met with pt at bedside to confirm discharge plan and assess for any unmet needs. Per order, SW provided DME company list for preferences to fax pt 4WW prescription and clinicals to. Pt preference is for [facility] in [place]. Their office is closed today in observance of the holiday, clinicals and prescription have been faxed. Pt directed to contact [facility] to check in about her walker. Original prescription sent home with pt just in case. Pt daughter transporting her home this afternoon. Pt denies any other needs. No other discharge needs identified. Plan: Per pt is medically ready to discharge home via POV. Pt denies any other needs. No other discharge needs identified. JOSHUA Telles
== END 2016-08-24 12:52 | disposition home or self-care (01) | DRG 392 ==
LOC: SED 20:14 → EDBD 20:14 → PCC 23:23
PROVIDERS: ADMIT Internal Medicine; ATTEND Internal Medicine
DX: A08.4 Viral intestinal infection, unspecified (principal); N17.9 Acute kidney failure, unspecified; E87.5 Hyperkalemia; E86.0 Dehydration; I27.2 Other secondary pulmonary hypertension; N18.9 Chronic kidney disease, unspecified; Z99.81 Dependence on supplemental oxygen; E11.9 Type 2 diabetes mellitus without complications; R60.0 Localized edema; Z86.73 Personal history of transient ischemic attack (TIA), and cerebral infarction without residual deficits; T50.0X5A Adverse effect of mineralocorticoids and their antagonists, initial encounter; T46.5X5A Adverse effect of other antihypertensive drugs, initial encounter; F32.9 Major depressive disorder, single episode, unspecified; Z79.4 Long term (current) use of insulin; I12.9 Hypertensive chronic kidney disease with stage 1 through stage 4 chronic kidney disease, or unspecified chronic kidney disease